=== PATIENT | male | born 2000 | race Caucasian/White ===

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

== ENCOUNTER 2022-02-08 08:09 | Emergency (ER) | payer OTHER ==
[2022-02-08 08:33] VITALS: BP 117/74; PULSE 77; RESP 20; TEMP 98.2; BMI 31.0
[2022-02-08] MEDS ORDERED: KETOROLAC TROMETHAMINE 30 MG/1 ML VIAL IM ONE (08:46)
[2022-02-08] MEDS ORDERED: KETOROLAC TROMETHAMINE 30 MG/1 ML VIAL ONE (08:58)
== END 2022-02-08 10:04 | disposition home or self-care (01) ==
LOC: FER 08:09
PROC: 3E0233Z Introduction of Anti-inflammatory into Muscle, Percutaneous Approach (ICD-10-PCS; principal; 2022-02-08)
DX: M94.0 Chondrocostal junction syndrome [Tietze] (principal)
CPT/HCPCS: 0241U-QW; 71046-TC-FY; 99285-25

== ENCOUNTER → 2022-02-08 | Emergency (ER) | payer OTHER ==
[2022-02-08 08:10] VITALS: BP 121/76; PULSE 76; RESP 18; TEMP 98.5; BMI 24.3
== END ==
LOC: JER 07:29
DX: R07.9 Chest pain, unspecified (principal)
CPT/HCPCS: 93005; 93010; 99281-25

== ENCOUNTER 2022-04-18 21:55 | Emergency (ER) | payer OTHER ==
[2022-04-18 22:11] VITALS: BP 117/79; RESP 18; TEMP 99.8; BMI 20.9
[2022-04-19] MEDS ORDERED: ACETAMINOPHEN 1000 MG/100 ML BAG IVPB ONE (00:35)
[2022-04-19] MEDS ORDERED: LACTATED RINGERS SOLUTION 1000 ML INFUS.BAG IV ONE (00:35)
[2022-04-19] MEDS ORDERED: ACETAMINOPHEN INJECTION 100 ML IVPB ONE (01:28)
[2022-04-19 01:53] LABS: BASO % 0.2 % (0-2.0); EOS % 0.1 % (0-4.5); HEMOGLOBIN 14.9 GM/dL (11.7-16.9); LYMPH % 28.5 % (8-40); MCH 30.5 pg (25.7-33.7); MCHC 33.8 g/dl (32.0-35.9); MEAN CELL VOLUME 90.2 fl (80-96); MEAN PLT VOLUME 7.5 fl (7.5-11.1); MONO % 9.4 % (3.8-10.2); NEUT % 61.8 % (42.8-82.8); PLATELET COUNT 252 10^3/uL (134-434); RBC 4.87 M/mm3 (4.00-5.60); RDW 13.2 % (11.9-15.9); WHITE BLOOD COUNT 5.3 K/mm3 (4.0-10.0)
[2022-04-19 02:13] LABS: ALBUMIN 4.3 g/dl (3.4-5.0); BLOOD UREA NITROGEN 17.8 mg/dL (7-18)
[2022-04-19 02:16] LABS: CREATININE 1.2 mg/dL (0.55-1.3)
[2022-04-19 02:17] LABS: BILIRUBIN,TOTAL 0.3 mg/dL (0.2-1); TOT PROT 7.9 g/dl (6.4-8.2)
[2022-04-19] MEDS ORDERED: DEXAMETHASONE 4 MG TABLET (FP) PO ONE (02:26)
[2022-04-19] MEDS ORDERED: ONDANSETRON 4 MG/2 ML VIAL IVPUSH ONE (02:26)
[2022-04-19] MEDS ORDERED: DEXAMETHASONE SOD PHOSPHATE 10 MG/1 ML VIAL ONE (02:30)
[2022-04-19] MEDS ORDERED: ONDANSETRON 4 MG/2 ML VIAL ONE (02:30)
[2022-04-19] MEDS ORDERED: AZITHROMYCIN 500 MG TABLET PO ONE (02:41)
[2022-04-19] MEDS ORDERED: AZITHROMYCIN 250 MG TABLET ONE (02:44)
[2022-04-19 02:54] VITALS: PULSE 82
== END 2022-04-19 02:54 | disposition home or self-care (01) ==
LOC: JER 21:55
PROC: 3E033GC Introduction of Other Therapeutic Substance into Peripheral Vein, Percutaneous Approach (ICD-10-PCS; principal; 2022-04-18)
DX: U07.1 COVID-19 (principal)
CPT/HCPCS: 0241U-QW; 36415; 71045-TC-FY; 80053; 82962; 83690; 85025; 93005; 93010; 99285-25

== ENCOUNTER 2023-02-06 07:34 | Emergency (ER) | payer OTHER ==
[2023-02-06 08:24] VITALS: BP 118/75; PULSE 85; RESP 17; TEMP 98.8; BMI 26.9
[2023-02-06 08:33] LABS: HEMOGLOBIN 16.2 G/dL (11.7-16.9); MCH 29.9 pg (25.7-33.7); MEAN CELL VOLUME 90.7 fl (80-96); MEAN PLT VOLUME 8.2 fl (7.5-11.1); RDW 14.1 % (11.9-15.9)
[2023-02-06 08:36] LABS: ALBUMIN 4.9 g/dl (3.4-5.0); BILIRUBIN,TOTAL 0.5 mg/dl (0.2-1); CALCIUM 10.4 mg/dl (8.5-10.1); CREATININE 0.8 mg/dl (0.6-1.3); PLATELET ESTIMATE ADEQUATE; POTASSIUM 3.9 mmol/L (3.5-5.1); TOT PROT 7.9 g/dl (6.4-8.2)
[2023-02-06] MEDS ORDERED: BISACODYL 10 MG SUPP.RECT PR ONE (08:55)
[2023-02-06] MEDS ORDERED: KETOROLAC TROMETHAMINE 15 MG/ML VIAL IVPUSH ONE (08:56)
[2023-02-06] MEDS ORDERED: MAGNESIUM CITRATE 300 ML BOTTLE PO ONE (08:56)
[2023-02-06] MEDS ORDERED: KETOROLAC TROMETHAMINE 15 MG/ML VIAL ONE (08:58)
[2023-02-06] MEDS ORDERED: POLYETHYLENE GLYCOL (HEALTHYLAX) 3350 17 GM PACKET PO ONE (09:00)
[2023-02-06] MEDS ORDERED: MAGNESIUM CITRATE 300 ML BOTTLE ONE (09:00)
[2023-02-06] MEDS ORDERED: BISACODYL 10 MG SUPP.RECT ONE (09:01)
== END 2023-02-06 09:28 | disposition home or self-care (01) ==
LOC: FER 07:34
DX: R10.32 Left lower quadrant pain (principal); R30.0 Dysuria; R11.0 Nausea; K59.00 Constipation, unspecified
CPT/HCPCS: 36415; 74176-TC; 80053; 81003; 85027; 87086; 99284-25

== ENCOUNTER 2023-02-20 09:46 | Emergency (ER) | payer OTHER ==
[2023-02-20 10:05] VITALS: BP 112/80; PULSE 94; RESP 18; TEMP 98.1; BMI 26.9
[2023-02-20] MEDS ORDERED: SODIUM CHLORIDE 0.9% 500 ML INFUS.BAG IV ONE (10:06)
[2023-02-20] MEDS ORDERED: ACETAMINOPHEN 1000 MG/100 ML BAG IVPB ONE (10:06)
[2023-02-20] MEDS ORDERED: METHYLNALTREXONE BROMIDE 8 MG/0.4 ML SYRINGE SQ ONE (10:06)
[2023-02-20] MEDS ORDERED: ACETAMINOPHEN INJECTION 100 ML IVPB ONE (10:10)
[2023-02-20 10:48] LABS: HEMATOCRIT 46.2 % (35.4-49); HEMOGLOBIN 15.7 G/dL (11.7-16.9); MEAN CELL VOLUME 91.2 fl (80-96); MEAN PLT VOLUME 7.7 fl (7.5-11.1); PLATELET COUNT 323.4 10^3/uL (134-434); RBC 5.07 10^6/uL (4.00-5.60); RDW 14.1 % (11.9-15.9); WHITE BLOOD COUNT 7.2 10^3/uL (4.0-10.8)
[2023-02-20 10:53] LABS: PLATELET ESTIMATE ADEQUATE
[2023-02-20 10:58] LABS: ALBUMIN 4.8 g/dl (3.4-5.0); BILIRUBIN,TOTAL 0.6 mg/dl (0.2-1); CALCIUM 10.1 mg/dl (8.5-10.1); CREATININE 0.8 mg/dl (0.6-1.3); MAGNESIUM 1.9 mg/dL (1.8-2.4); TOT PROT 7.9 g/dl (6.4-8.2)
[2023-02-20] MEDS ORDERED: HYDROmorphone HCL 2 MG TABLET ONE (12:32)
== END 2023-02-20 14:25 | disposition home or self-care (01) ==
LOC: FER 09:46
PROC: 3E033NZ Introduction of Analgesics, Hypnotics, Sedatives into Peripheral Vein, Percutaneous Approach (ICD-10-PCS; principal; 2023-02-20)
PROC: 3E023GC Introduction of Other Therapeutic Substance into Muscle, Percutaneous Approach (ICD-10-PCS; 2023-02-20)
DX: K59.00 Constipation, unspecified (principal); R11.10 Vomiting, unspecified; R10.84 Generalized abdominal pain
CPT/HCPCS: 36415; 74177-TC; 80053; 81003; 83605; 83690; 83735; 85025; 93005; 99285-25